=== PATIENT | female | born 1950 | race Caucasian/White ===

== ENCOUNTER → 2018-04-07 | Outpatient (RCR) | payer MEDICARE, OTHER ==
[~2018-04-07] MED LIST: AMITIZA24 MCG PO; CELEXA 20MG20 MG/TAB PO; ERGOCALCIFER50000 IU PO; FENTANYL 75MCG TD; NEURONTIN600 MG/TAB PO; OYSCO 500 + D 51 TAB PO; XTAMPZA ER9 MG PO
== END | disposition home or self-care (01) ==
LOC: WSPT → WSC 01-07 13:13 → WSPT 02-02 12:45
DX: M43.16 Spondylolisthesis, lumbar region (principal); R20.0 Anesthesia of skin
CPT/HCPCS: G8978-GP; G8979-GP

== ENCOUNTER 2018-04-27 13:30 | Outpatient (RCR) | payer MEDICARE, OTHER | END 2018-07-12 | disposition home or self-care (01) | LOC: WSPT | DX: M43.16 Spondylolisthesis, lumbar region (principal); R20.0 Anesthesia of skin; Z91.81 History of falling ==

== ENCOUNTER → 2019-01-04 | Outpatient (RCR) | payer MEDICARE, OTHER | END | disposition still patient (30) | LOC: WSC → WSPT 12-28 08:30 → WSC 12-30 08:30 | DX: G11.4 Hereditary spastic paraplegia (principal) ==

== ENCOUNTER 2023-06-26 09:53 | Day surgery (SDC) | payer MEDICARE, OTHER ==
[~2023-06-26] VITALS: Ht 157.5 cm; Wt 61.5 kg
[~2023-06-26 09:53] MED LIST changes: +LR 1,000 ML IV SCH; +Ondansetron 4 MG/2 ML VIAL IV PRN
[2023-06-26] MEDS ORDERED: PROTONIX 40MG T40 MG PO (11:15)
[2023-06-26] MEDS ORDERED: LIDODERM 5% PATC1 EA TP (11:15)
[2023-06-26] MEDS ORDERED: COLACE 100100 MG/CAP PO (11:15)
[2023-06-26] MEDS ORDERED: MYRBETR25MG PO (11:16)
[2023-06-26] MEDS ORDERED: INDERAL40 MG PO (11:16)
[2023-06-26] MEDS ORDERED: EMGALITY120 MG/1 M SQ (11:17)
[2023-06-26 11:27] VITALS: BP 118/85; PULSE 80; TEMP 97.9
[2023-06-26] MEDS ORDERED: Lidocaine PF 2% (20 MG/ML) 5 ML VIAL ONE (12:23)
[2023-06-26 12:50] VITALS: BP 113/69; PULSE 74; TEMP 97.9
[2023-06-26 13:05] VITALS: BP 122/56; PULSE 73
[2023-06-26 13:20] VITALS: BP 147/78; PULSE 72
[2023-06-26 13:35] VITALS: BP 139/74; PULSE 69
--- NOTE | 2023-06-26 17:47 | NUR ---
[id number]: PT TO ENDO RECOVERY BAY FROM [facility]O [facility] S/P EGD WITH DILATION, BX A&O, PLACED ON MONITOR, VSS ON RA RECEIVED REPORT AND ASSUMED CARE OF PT FROM ENDO RN SPOUSE AT BEDSIDE PROVIDED FOOD/FLUIDS, TOLERATING WELL MD IN TO SEE PT POST-PROCEDURE PT HAS REMAINED A&O, NAD, VSS ON RA, TOLERATING PO, IS WITHOUT SIGNIFICANT COMPLAINT, WITH SAFE GAIT THRU OUT STAY IV D/C'D. D/C INSTRUCTIONS, ANY FOLLOW UP REVIEWED AND HANDED TO PT. ALL QUESTIONS AND CONCERNS ADDRESSED TO PT SATISFACTION. TAKEN TO EXIT VIA W/C WITH ALL BELONGINGS AND PAPERWORK IN HAND, ASSISTED INTO PASSENGER SEAT OF POV. HSB TO DRIVE HOME.
== END 2023-06-26 14:00 | disposition home or self-care (01) ==
LOC: SDCO 09:53
DX: K21.00 Gastro-esophageal reflux disease with esophagitis, without bleeding (principal); K22.2 Esophageal obstruction; E66.01 Morbid (severe) obesity due to excess calories; Z68.39 Body mass index [BMI] 39.0-39.9, adult; Z79.899 Other long term (current) drug therapy; Z87.891 Personal history of nicotine dependence
CPT/HCPCS: C1726; J2704; J7120

== ENCOUNTER → 2023-09-29 | Day surgery (SDC) | payer MEDICARE, OTHER ==
[~2023-09-29] MED LIST changes: +Acetaminophen 325 MG TAB PO PRN; +Acetaminophen 500 MG TAB PO SCH; +COLACE 100100 MG/CAP PO; +DULCOLAX STOOL100 MG PO; +EMGALITY120 MG/1 M SQ; +GENTAMICIN IV SCH; +HYDROmorphone 1 MG/1 ML SYRINGE [PACU/SDC ONLY] IV PRN; +Hyoscyamine 0.125 MG Sublingual TAB SL PRN; +INDERAL 20MG20 MG PO; +INDERAL40 MG PO; +LIDODERM 5% PATC1 EA TP; +Lidocaine PF 2% (20 MG/ML) 10 ML POLY AMP IJ ONE; +MYRBETR25MG PO; +Meperidine 50 MG/ML 1 ML VIAL IV PRN; +Midazolam 2 MG/2 ML VIAL ONE; +Morphine 4 MG/ML VIAL IV PRN; +NEURONTIN800 MG/TAB PO; +NS 0 ML IV ONE; +NS IV SCH; +Naloxone 0.4 MG/ML VIAL IV PRN; +PROTONIX 40MG T40 MG PO; +Topical Skin Adhesive 1 EACH (1 ML) TOP ONE; +UBRELVY100 MG PO; +ZANAFLEX 4MG TAB4 MG PO; +fentaNYL 50 MCG/ML 1 ML SYRINGE/VIAL [PACU/SDC ONLY] IV PRN; +hydrALAZINE 20 MG/ML 1 ML VIAL IV PRN; +oxyCODONE 5 MG TAB PO PRN
[2023-09-29 17:40] VITALS: BP 136/71; PULSE 83; TEMP 97
[2023-09-29 17:55] VITALS: BP 134/69; PULSE 84
[2023-09-29 18:10] VITALS: BP 129/78; PULSE 84
--- NOTE | 2023-09-29 18:40 | NUR ---
1740 RETURNS TO ROOM 6 PER CART FROM OR. AWAKE, ALERT. RESP UNLABORED. VITAL SIGNS OBTAINED. INCISION LEFT FLANK AREA INTACT WITHOUT REDNESS, EDEMA OR DRAINAGE. DENIES PAIN. CALL LIGHT AT SIDE 1755 HOB ELEVATED 75 DEGREES [employer] REP HERE VISITING WITH PATIENT. 181 TOLERATES PO JUICE AND ICE CREAM WITHOUT NAUSEA. DISCHARGE INSTRUCTIONS REVIEWED. PATIENT VERBALIZES UNDERSTANDING. COPY PROVIDED IN DISCHARGE FOLDER. 182 IN ROOM. PATIENT ASSISTED TO CHAIR AT BEDSIDE. DRESSES WITH ASSIST FROM .
== END ==
LOC: SDCO 12:52
DX: N39.41 Urge incontinence (principal); K21.9 Gastro-esophageal reflux disease without esophagitis; R35.1 Nocturia; E66.01 Morbid (severe) obesity due to excess calories; R35.0 Frequency of micturition; R31.21 Asymptomatic microscopic hematuria; Z79.899 Other long term (current) drug therapy; Z87.891 Personal history of nicotine dependence
CPT/HCPCS: C1767; C1778; C1787; C1894; J0690; J1580; J2250; J2704; J3370; J7050; J7120; L8679